=== PATIENT | female | born 1935 | race Caucasian/White ===

== ENCOUNTER → 2017-04-19 | Outpatient (CLI) | payer MEDICARE ==
[~2017-04-19] MED LIST: ACETAMINOPHEN PO; ADVAIR 500-501 EACH IH; ADVAIR INH; ALBUTEROL17 GM INH; AMARYL2 MG PO; AMITRIPTYLINE H25 MG PO; ASPIRIN81 M1 PO; ASPIRIN81 M2 PO; BENICAR HCT 40-1 TA1 PO; CATAFLAM50 MG PO; CLEOCIN HCL150 MG PO; COUMADIN PO; COUMADIN2.5 MG PO; COUMADIN3 MG PO; COUMADIN5 MG PO; DIGITEK125 MC1 PO; DIGITEK125 MCG PO; DURAGESIC100 MCG EXT; FENTANYL PATCH TOP; FENTANYL1 PATCH .1 TD; FENTANYL1 PATCH .7 TOP; GLUCOPHAGE500 MG PO; HYDRALAZINE HCL25 MG PO; HYDRALAZINE HCL50 MG PO; HYDROCHLOROTHIA25 MG PO; HYDROCODON-ACE1 EA10 PO; HYDROCODON-ACE1 EAC5 PO; HYDROCODONE-APA1 T30 PO; JANTOVEN5 MG PO; JANUMET 50-501 UDTAB PO; KEFLEX500 M1 PO; LANOXIN PO; LEVAQUIN750 M1 PO; LODINE PO; LOPRESSOR PO; LOVASTATIN20 M1 PO; METFORMIN HCL500 M1 PO; METOPROLOL SUC100 MG PO; METOPROLOL TAR100 MG PO; MEVACOR PO; MEVACOR40 MG PO; NIACIN500 M1 PO; NIACIN500 M2 PO; OMNICEF300 MG PO; PERCOCET10 PO; PRINIVIL40 MG PO; SPIRIVA18 MCG INH; TESSALON200 MG PO; TRAZODONE HCL100 MG PO; WARFARIN SODIUM3 M1 PO; ZESTRIL40 MG PO
--- NOTE | ~2017-04-19 | BD1 ---
[facility] A Service of [facility] & [facility] RADIOLOGY TEXT RESULTS PATIENT: ROJELIO RUANO LOCATION: [facility] : 37 UNIT #: [id number] AGE: [address]: Tamy Daniel MD SEX: F ORDER DR: [id number] [place] [id number] O MR#: [id number] Acc #: [id number] NAME: ROJELIO RUANO : 1935 SEX: F STUDY DATE/TIME: 04/19/2017 12:32 UNIT: [facility] ROOM: STUDY DESCRIPTION: Dexa Bone Dens 1+ Site Attending Physician: Tamy Daniel M.D. Referring Physician: Tamy Daniel M.D. Ordering Physician: Tamy Daniel M.D. Primary Care Physician: Tamy Daniel M.D. MEDICAL IMAGING REPORT This report is preliminary unless electronic signature is present. EXAM DXA scan, 04/19/2017. HISTORY Status post menopause with no hormone replacement therapy. Senile osteoporosis. Fracture of shoulder in last 10 years. FINDINGS Bone mineral density in the lumbar spine from L1 through L4 is 1.282 g/cm2 which is 0.8 standard deviations above the mean when compared to the young adult reference population which is within the range of normal. This is 2.1 standard deviations above the mean when compared to the age-matched population. Bone mineral density in the left femoral neck was 0.75 g/cm2 which is 2.1 standard deviations below the mean when compared to the young adult reference population which is characteristic of osteopenia. This is 0.3 standard deviations below the mean when compared to the age-matched population. Bone mineral density in the right femoral neck was 0.713 g/cm2 which is 2.3 standard deviations below the mean when compared to the young adult reference population which is characteristic of osteopenia. This is 0.6 standard deviations below the mean when compared to the age-matched population. IMPRESSION Bone mineral density in the lumbar spine within the range of normal and within the hips bilaterally characteristic of osteopenia. Dictated by... Himanshu Zhu M.D. THIS IS AN ELECTRONICALLY VERIFIED REPORT Himanshu Zhu M.D. at 04/20/2017 8:03 AM [facility] A Service of [facility] & [facility] RADIOLOGY TEXT RESULTS PATIENT: ROJELIO RUANO [id number] 36 UNIT #: [id number] AGE: [address]: Tamy Daniel MD SEX: F ORDER DR: Jeremias TD: 04/19/2017 16:31 JOB #: [id number] MEDICAL IMAGING REPORT Page 1 of 1
== END | disposition home or self-care (01) ==
LOC: SRAD 12:13
DX: M81.0 Age-related osteoporosis without current pathological fracture (principal)
CPT/HCPCS: 77080

== ENCOUNTER → 2017-07-25 | Outpatient (CLI) | payer MEDICARE ==
--- NOTE | ~2017-07-25 | US6 ---
[facility] A Service of [facility] & [facility] RADIOLOGY TEXT RESULTS PATIENT: ROJELIO RUANO LOCATION: [facility] : 37 UNIT #: [id number] AGE: [address]: YOMI CARROLL MD (INT [facility]) SEX: F ORDER DR: [id number] [address] [address] [id number] O MR#: [id number] Acc #: [id number] NAME: ROJELIO RUANO : 1935 SEX: F STUDY DATE/TIME: 07/25/2017 9:33 UNIT: [facility] ROOM: STUDY DESCRIPTION: US Abdominal Limited Attending Physician: Yomi Carroll M.D. Referring Physician: Yomi Carroll M.D. Ordering Physician: Yomi Carroll M.D. Primary Care Physician: Yomi Carroll M.D. MEDICAL IMAGING REPORT This report is preliminary unless electronic signature is present. EXAM Ultrasound abdomen, limited, 07/25/2017 HISTORY 82-year-old female referred for 2-week history of nausea and vomiting. Elevated liver function tests are noted. TECHNIQUE Vazquez-scale ultrasound imaging of the right upper abdomen. FINDINGS The liver is abnormal. Multiple small, non cystic hypoechoic masses of varying size are scattered throughout the liver. The appearance is highly concerning for hepatic metastatic disease of unknown primary. CT examination of the abdomen and pelvis with oral and IV contrast is recommended for further assessment of the liver and to assess for primary malignancy elsewhere. I have personally telephoned the results to the ordering physician's office prior to this dictation. Cholecystectomy. No bile duct dilatation. Pancreas is largely obscured by overlying bowel gas. No free fluid in the right upper abdomen. Right kidney is negative with no hydronephrosis. IMPRESSION 1. Multiple small hypoechoic masses scattered throughout the liver highly concerning for hepatic metastatic disease. No prior abdominal imaging here. Followup CT examination of the abdomen and pelvis with oral and IV contrast is recommended for further assessment. 2. Cholecystectomy. No bile duct dilatation. STAT * RESULT [facility] A Service of [facility] & [facility] RADIOLOGY TEXT RESULTS PATIENT: ROJELIO RUANO LOCATION: [facility] : 37 UNIT #: [id number] AGE: [address]: YOMI CARROLL MD ([facility]) SEX: F ORDER DR: Dictated by... Ilan Walker M.D. THIS IS AN ELECTRONICALLY VERIFIED REPORT Ilan Walker M.D. at 07/25/2017 5:45 PM ANDRESW/tammy TD: 07/25/2017 12:41 JOB #: [id number] MEDICAL IMAGING REPORT Page 1 of 1
== END | disposition home or self-care (01) ==
LOC: SGUS 08:53
DX: R79.89 Other specified abnormal findings of blood chemistry (principal); R16.0 Hepatomegaly, not elsewhere classified; Z90.49 Acquired absence of other specified parts of digestive tract
CPT/HCPCS: 76705

== ENCOUNTER → 2017-07-27 | Outpatient (CLI) | payer MEDICARE ==
--- NOTE | ~2017-07-27 | CT2 ---
[facility] A Service of [facility] & [facility] RADIOLOGY TEXT RESULTS PATIENT: ROJELIO RUANO LOCATION: [facility] : 37 UNIT #: [id number] AGE: [address]: Tamy Daniel MD SEX: F ORDER DR: [id number] [address] [address] [id number] O MR#: [id number] Acc #: [id number] NAME: ROJELIO RUANO : 1935 SEX: F STUDY DATE/TIME: 07/27/2017 13:24 UNIT: [facility] ROOM: STUDY DESCRIPTION: CT Abd and Pelv W Cont Attending Physician: Tamy Daniel M.D. Referring Physician: Tamy Danile M.D. Ordering Physician: Tamy Daniel M.D. Primary Care Physician: Tamy Daniel M.D. MEDICAL IMAGING REPORT This report is preliminary unless electronic signature is present. EXAM CT abdomen and pelvis with contrast INDICATIONS Liver lesion and constipation. Multiple abnormal lesions were seen on a recent ultrasound. This study is performed to further characterize these lesions. TECHNIQUE CT scan of the abdomen and pelvis was performed following the administration of oral and IV contrast. Coronal and sagittal reformatted images were obtained. This CT exam was performed with one or more of the following radiation dose reduction techniques: automatic exposure control, adjustment of mA and/or kV according to patient size, and iterative reconstruction. COMPARISON No comparisons are available. Study is correlated with an abdominal ultrasound from 07/25/2017. FINDINGS Evaluation of the lung bases demonstrates a few tiny nodules in the base of the right lung which are indeterminate. There are innumerable low-density lesions within the liver, highly concerning for metastatic disease. Index lesion in the right lobe of the liver measures 2.8 cm. There has been a previous cholecystectomy. The spleen is unremarkable. There are bilateral renal cysts. The adrenal glands are unremarkable. There is some nonspecific thickening in the second portion of the duodenum. The pancreas is unremarkable. No evidence for ascites. There are some enlarged periportal lymph nodes with an index node measuring about 2.5 x 1.[address] [facility] A Service of [facility] & [facility] RADIOLOGY TEXT RESULTS PATIENT: ROJELIO RUANO LOCATION: [facility] : 37 UNIT #: [id number] AGE: [address]: Tamy Daniel MD SEX: F ORDER DR: PELVIS: There is abnormal thickening in the region of the sigmoid colon and findings suspicious for a large mass. Recommend further evaluation with colonoscopy. Large stool burden in the colon consistent with constipation. Normal appendix. Not mentioned above, small ventral abdominal wall hernia containing only fat. The bone windows are unremarkable. IMPRESSION 1. Abnormal exam. There are innumerable hypodense liver lesions, most suggestive of metastatic disease. Index lesion measures 2.8 cm, as described above. 2. There is an abnormal appearance of the sigmoid colon with what appears to be a mass. Recommend evaluation with colonoscopy. 3. Mildly enlarged, but nonspecific periportal lymph nodes. 4. A few tiny nodules in the base of the right lower lobe are nonspecific and should be followed. Dictated by... Albaro Jaquez M.D. THIS IS AN ELECTRONICALLY VERIFIED REPORT Albaro Jaquez M.D. at 07/28/2017 7:36 AM Hannah TD: 07/27/2017 18:17 JOB #: [id number] MEDICAL IMAGING REPORT Page 1 of 1
[2017-07-27 12:36] LABS: POC - GFR >60.0 mL/min (>60)
== END | disposition home or self-care (01) ==
LOC: SCT 12:02
PROVIDERS: Family Medicine
DX: K76.9 Liver disease, unspecified (principal); R93.2 Abnormal findings on diagnostic imaging of liver and biliary tract; R59.0 Localized enlarged lymph nodes
CPT/HCPCS: 74177; 82565; Q9967